=== PATIENT | female | born 1940 | race Caucasian/White ===

== ENCOUNTER 2017-08-31 06:38 | Inpatient (IN) | payer MEDICARE, OTHER ==
[2017-08-31 07:14] LABS: Oxyhemoglobin 89.7 % (94.0-97.0); Sodium 139 mmol/L (135-148)
[2017-08-31 07:17] LABS: Mode 2L/M NASAL CANNULA; Modified Allen's Test POSITIVE
[2017-08-31 07:23] LABS: #Basophils 0.1 thou/uL (0.0-0.2); #Eosinphils 0.6 thou/uL (0.0-0.7); #Monocytes 0.9 thou/uL (0.11-0.59); #Neutrophils 7.5 thou/uL (1.40-6.50); %Basophils 0.5 % (0.0-1.0); %Eosinophils 5.6 % (0.0-10.0); %Lymphocytes 17.9 % (21.0-51.0); %Monocytes 8.4 % (0.0-10.0); Hematocrit 39.8 % (36.0-47.0); Red Blood Cell (RBC) Count 4.29 mill/uL (4.20-5.40); White Blood Cell (WBC) Count 11.1 thou/uL (4.8-10.8)
[2017-08-31 07:30] LABS: Prothrombin Time 13.8 SEC (12.0-14.7)
[2017-08-31 07:31] LABS: PTT 43.5 SEC (22.9-36.1)
[2017-08-31 07:42] LABS: Lactic Acid - Sepsis 1.9 mmol/L (0.5-2.2)
[2017-08-31 07:46] LABS: ALT (SGPT) 14 U/L (8-55); AST (SGOT) 14 U/L (5-34); Alkaline Phosphatase 159 U/L (40-150); Anion Gap 15 mmol/L (10-20); BUN (Urea Nitrogen) 12 mg/dL (9.8-20.1); Bilirubin, Total 0.3 mg/dL (0.2-1.2); CK (CPK) 21 U/L (29-168); Calc. Creatinine Clearance 0 mL/min (70-130); Calcium 9.4 mg/dL (7.8-10.44); Carbon Dioxide 24 mmol/L (23-31); Chloride 102 mmol/L (98-107); Estimated GFR-MDRD 66; Globulin 3.6 g/dL (2.4-3.5); Lipase 8 U/L (8-78); Protein, Total 7.2 g/dL (6.0-8.3)
[2017-08-31 07:49] LABS: Bilirubin Negative (Negative); Blood, Urine Negative (Negative); Glucose, Urine (Dipstick) Negative (Negative); Ketone, Urine Negative (Negative); Nitrite Negative (Negative); Protein, Urine (Dipstick) Trace mg/dL (Neg-Trace); Urobilinogen 0.2 mg/dL (0.2-1.0)
[2017-08-31 07:49] LABS: Troponin I Less than 0.010 ng/mL (< 0.028)
[2017-08-31] MEDS ORDERED: HYDROcodone/Acetaminophen 10/325 mg Tablet ONE (08:11)
--- NOTE | 2017-08-31 08:18 | RAD ---
PORTABLE CHEST ONE VIEW: History: 77-year-old female with cough for three days. Fever. Chills. Comparison: 05-31-17 FINDINGS: Rotation to the left. Poor inspiration. Minimal cardiomegaly. No confluent pneumonia, overt edema or pleural effusion . IMPRESSION: Poor inspiratory effort with minimal cardiomegaly. Stable increased markings in the bases, evidence for some chronic change. No confluent pneumonia or other acute process. POS: GARY
[2017-08-31] MEDS ORDERED: Loratadine 10 MG TAB PO PRN (09:56)
[2017-08-31] MEDS ORDERED: Ondansetron HCl/PF 4 MG/2 ML Vial IVP PRN (09:56)
[2017-08-31] MEDS ORDERED: Loperamide HCl 2 MG CAP PO PRN (09:56)
[2017-08-31] MEDS ORDERED: Eucerin (Mineral Oil/Petrolatum,White) 30 gm Jar TOP PRN (09:56)
[2017-08-31] MEDS ORDERED: HYDROcodone/Acetaminophen 5/325 mg Tablet PO PRN (09:56)
[2017-08-31] MEDS ORDERED: Diabetic Tussin 200 MG/10 ML UDCUP PO PRN (09:56)
[2017-08-31] MEDS ORDERED: Sodium Chloride 0.65% Nasal 44 ML BOT EA NARE PRN (09:56)
[2017-08-31] MEDS ORDERED: Milk Of Magnesia 30 ML UDCUP PO PRN (09:56)
[2017-08-31] MEDS ORDERED: Mag-Al 1200 mg/1200 mg/30 ML UDCUP PO PRN (09:56)
[2017-08-31] MEDS ORDERED: Chloraseptic Spray 180 ml Bottle PO PRN (09:56)
[2017-08-31] MEDS ORDERED: Benzonatate 100 MG CAP PO PRN (09:56)
[2017-08-31] MEDS ORDERED: Artificial Tears 18 DROP/0.9 ML EA EYE PRN (09:56)
[2017-08-31] MEDS ORDERED: Ondansetron ODT 4 MG TAB PO PRN (09:56)
[2017-08-31] MEDS ORDERED: Senokot 8.6 MG TAB PO PRN (09:56)
[2017-08-31] MEDS ORDERED: Acetaminophen 325 MG TAB PO PRN (09:56)
[2017-08-31] MEDS ORDERED: hydrALAZINE 20 MG/ML VIAL SLOW IVP PRN (09:56)
[2017-08-31 10:22] VITALS: BMI 34.6
[2017-08-31] MEDS ORDERED: Sodium Chloride 0.9% 1,000 ML IV SCH (10:30)
[2017-08-31] MEDS ORDERED: HYDROcodone/Acetaminophen 10/325 mg Tablet PO PRN (10:37)
[2017-08-31] MEDS ORDERED: Phenergan/Codeine 10-6.25mg/5ml UDCUP PO PRN (10:37)
[2017-08-31] MEDS ORDERED: Potassium Chloride 10 MEQ TAB PO PRN (10:37)
[2017-08-31 10:58] LABS: Troponin I Less than 0.010 ng/mL (< 0.028)
[2017-08-31] MEDS: Sodium Chloride 0.9% 1,000 ML IV SCH ×2 (11:04→23:43)
[2017-08-31] MEDS: cefTRIAXone\\ROCEPHIN 2 GM, Admixture Fee 1 EACH in Sodium Chloride 0.9% 100 ML IVPB SCH (11:04)
--- NOTE | 2017-08-31 11:54 | HP ---
PRIMARY CARE PHYSICIAN: Dr. Agustin Villalta. REASON FOR ADMISSION: Sepsis, early pneumonia/bronchitis. HISTORY OF PRESENT ILLNESS: A 77-year-old female who lives at home. She is mostly bed-bound status. She only able to ambulate few steps with help, most of the time she spends time in a recliner. Two weeks ago, patient was evaluated by [facility] nurse practitioner, and patient was started on Medrol Dosepak and antibiotic therapy for her plain cough. The patient's daughter reports that she has cough for a long period of time, but at that time cough has gotten worse and patient was given a course of antibiotic as well as a Medrol Dosepak that helped her symptoms, but when they finished antibiotic and steroid course, patient's symptoms started again. The patient was having increasing coughing. She was becoming more and more weak. She does have postnasal drip. She was feeling sore throat. She denies any upper respiratory infection. She denies any flu-like illness. She denies any hemoptysis, but she reports cough productive of yellowish-white sputum. Last night, patient was having low-grade fever and again patient this morning fever was increased to 100.7 and Paramedics was called and Paramedics checked her temperature, it was 101. Patient denies any pleuritic chest pain. She denies any shortness of breath. When she arrived to ER, her oxygen saturation was 88% on room air. With oxygen, her saturation improved to normal. She was tachycardic. She was meeting SIRS/sepsis criteria. Patient had blood culture done and patient was given empiric antibiotic therapy, subsequently we decided to keep this patient in the hospital for further evaluation and treatment. Patient denies any UTI symptoms. She denies any constipation or diarrhea. She had last bowel movement yesterday. She denies any hematochezia or melena. She denies any abdominal pain, nausea, vomiting, or diarrhea. REVIEW OF SYSTEMS: Please see my HPI for pertinent positives and negatives. All other review of systems reviewed and negative except as mentioned in the HPI. Constitutional: Weight loss or gain, ability to conduct usual activities. Skin: Rash, itching. Eyes: Double vision, pain. ENT/Mouth: Nose bleeding, neck stiffness, pain, tenderness. Cardiovascular: Palpitations, dyspnea on exertion, orthopnea. Respiratory: Shortness of breath, wheezing, cough, hemoptysis, fever, or night sweats. Gastrointestinal: Poor appetite, abdominal pain, heartburn, nausea, vomiting, constipation, or diarrhea. Genitourinary: Urgency, frequency, dysuria, nocturia. Musculoskeletal: Pain, swelling. Neurologic/Psychiatric: Anxiety, depression. Allergy/Immunologic: Skin rash, bleeding tendency. ALLERGIES: ERYTHROMYCIN, LATEX GLOVES, and SULFA DRUGS. CURRENT HOME MEDICATIONS: Xanax 0.25 mg p.o. at bedtime; albuterol nebulization q.4 hourly; ProAir HFA 2 puffs q.4 hourly p.r.n.; amlodipine 10 mg daily; vitamin C 500 mg p.o. daily; Lipitor 10 mg p.o. daily; QVAR one inhalation b.i.d.; vitamin D3 of 200 units p.o. daily; Nexium 40 mg p.o. daily; Prozac 20 mg p.o. daily; Lasix 20 mg p.o. daily p.r.n.; gabapentin 800 mg p.o. as directed, she takes 2 tablets in morning, 1 tablet in afternoon, and 2 tablets at bedtime; [place] one tablet q.4 hourly p.r.n.; Synthroid 125 mcg p.o. daily; Imodium as directed; Mobic 15 mg p.o. daily; multivitamin 1 tablet p.o. daily; potassium chloride 10 mEq p.o. daily p.r.n.; Phenergan with codeine p.r.n.; Zantac 75 mg p.o. at bedtime; Detrol-LA 4 mg p.o. daily; valsartan 320 mg p.o. daily. PAST MEDICAL HISTORY: Chronic obstructive pulmonary disease/asthma, dyslipidemia, hypertension, gastroesophageal reflux disease, chronic physical deconditioning, chronic back pain, hypothyroidism. PAST SURGICAL HISTORY: Back surgery, appendicectomy, cholecystectomy, hysterectomy. FAMILY HISTORY: No strong family history of CAD, CVA or cancer. PAST PSYCHIATRIC HISTORY: Anxiety and depression. SOCIAL HISTORY: Patient lives at home. She is . No history of tobacco , alcohol, or illicit drug abuse. Patient has a sedentary lifestyle. EMERGENCY ROOM COURSE: Patient was given IV fluid 1 liter, Levaquin 750 mg. Patient was given another liter of fluid and DuoNeb therapy. PHYSICAL EXAMINATION: VITAL SIGNS: On arrival blood pressure 143/86, pulse 111, respiratory rate 28, temperature 99.2, saturation 88% on room air, weight 99.7 kilograms. GENERAL: Patient is currently alert, awake, appears weak. No obvious acute distress. HEAD: Normocephalic, atraumatic. EYES: Pupils round, reactive to light. Extraocular muscles intact. ENT: Oropharynx within normal limits. Moist mucous membranes. No oral lesions. No pharyngeal erythema and no exudate. NECK: Supple, no JVD, no thyromegaly, no carotid bruit. No meningeal signs of irritation. LUNGS: Bilateral few and expiratory wheezing heard. Air entry reduced at bases. No rales. No accessory muscles of respiration in use. CARDIAC: S1, S2 regular, tachycardia. No murmur, no gallop, no rub. ABDOMEN: Soft, bowel sounds present, nontender, nondistended. No organomegaly , no mass, no suprapubic tenderness. BACK: Unremarkable. No CVA tenderness. EXTREMITIES: Upper extremity, passive movement of all joints are normal. Lower extremity, no edema. Good peripheral pulsation. No calf tenderness. SKIN: No skin rash. HEMATOLOGICAL SYSTEM: No lymphadenopathy. PSYCHIATRIC: Normal affect. NEUROLOGIC: Nonfocal examination. SIGNIFICANT LABORATORY DATA: EKG showing sinus tachycardia, premature atrial complexes, left axis deviation. Chest x-ray based on my review poor inspiratory effort, minimal cardiomegaly, possible infiltration at lung base. CBC: WBC 11.1, hemoglobin 13.1, platelet 244. INR 1.1. ABG: pH 7.42, pCO2 of 36.2, pO2 of 58.5, bicarbonate 23.1, saturation 91.6 on 2 liters. BMP: Sodium 136, potassium 4.5, chloride 102, carbon dioxide 24, BUN 12, creatinine 0.84, glucose 120, calcium 9.4. Lactic acid 1.9. LFT: AST 14, ALT 14, alkaline phosphatase 159, albumin 3.6. CK 21, CK-MB 0.5, troponin I less than 0.010. BNP 27.8, lipase 8. Urinalysis normal. Influenza A and B negative. ASSESSMENT AND PLAN: 1. Sepsis with systemic inflammatory response syndrome criteria. Source of infection is most likely lung. Patient does have symptoms suggestive of acute bronchitis versus early pneumonia. Patient already received empiric antibiotic therapy in the emergency room. I will continue Rocephin and Levaquin while in hospital. The patient will be given IV fluid with normal saline at 75 mL per hour. 2. Acute bronchitis/early pneumonia. Patient will be given Rocephin and Levaquin IV as mentioned above. Continue Solu-Medrol 20 mg IV q.8 hourly, Mucinex 600 mg twice daily. We will continue with the DuoNeb q.6 hourly and Dulera 2 puffs inhalation b.i.d. 3. Chronic obstructive pulmonary disease/asthma, as mentioned above. We will continue Solu-Medrol 20 mg IV q.8 hourly along with DuoNeb q.6 hourly and Dulera 2 puffs inhalation b.i.d., and Mucinex 600 mg twice daily and symptomatic treatment for cough. 4. Hypertension. If blood pressure allows, then we will continue amlodipine at 10 mg p.o. daily and valsartan 320 mg p.o. daily. At this point, blood pressure runs low and that is why we will hold on both antihypertensive medications, but we will consider adding later on today. 5. Gastroesophageal reflux disease. We will continue Protonix 40 mg p.o. daily. 6. Anxiety and depression. We will continue Xanax 0.25 mg p.o. at bedtime, Prozac 20 mg p.o. daily. 7. Chronic low back pain. We will consider giving her gabapentin as per home dosage, but at this point patient is taking high dose of gabapentin, so we will monitor with 300 mg t.i.d. 8. Hypothyroidism. We will continue Synthroid 125 mcg p.o. daily. 9. Chronic physical deconditioning. Patient does not have any ambulatory status. Patient has chronic physical deconditioning and that is why we will consult PT, OT evaluation while in hospital. 10. Obesity with BMI 34. Weight loss education given. Healthy lifestyle measures discussed with the patient. 11. Deep venous thrombosis prophylaxis. Patient's family member does not want Lovenox to be given, because they had bad experience with Lovenox in the past, because of her intraabdominal wall hematoma required blood transfusion and they do not want Lovenox to prevent deep vein thrombosis, but they are okay with mechanical SCD boots. Risks discussed with the patient's family member. 12. Gastrointestinal prophylaxis, Protonix 40 mg p.o. daily and Pepcid 20 mg p.o. daily. CODE STATUS: The patient is FULL CODE. Patient's daughter is surrogate decision maker. Disposition plan based on clinical course. We are expecting patient's stay in hospital more than 2 midnights. Plan of care discussed with the patient and daughter in detail. MTDD
[2017-08-31] MEDS: HYDROcodone/Acetaminophen 10/325 mg Tablet PO PRN ×3 (12:58→22:11)
[2017-08-31] MEDS: Mometasone/Formoterol 120 PUFF INHALER INH SCH (18:35)
[2017-08-31] MEDS: ALPRAZolam 0.25 MG TAB PO SCH (21:59)
[2017-08-31] MEDS: guaiFENesin ER 600 MG TAB PO SCH (21:59)
[2017-08-31] MEDS: TROSPIUM 20 MG TABLET PO SCH (22:00)
[2017-08-31] MEDS: Famotidine 20 MG TAB PO SCH (22:00)
[2017-08-31] MEDS: Zolpidem Tartrate 5 MG TAB PO PRN (23:40)
[2017-09-01 05:34] LABS: #Lymphocytes 1.2 thou/uL (1.20-3.40); #Monocytes 0.3 thou/uL (0.11-0.59); #Neutrophils 8.4 thou/uL (1.40-6.50); %Basophils 0.2 % (0.0-1.0); %Eosinophils 0.4 % (0.0-10.0); %Lymphocytes 11.6 % (21.0-51.0); %Monocytes 2.8 % (0.0-10.0); Hematocrit 35.6 % (36.0-47.0); Mean Platelet Volume 7.2 fL (7.4-10.4); Red Blood Cell (RBC) Count 3.81 mill/uL (4.20-5.40); White Blood Cell (WBC) Count 9.9 thou/uL (4.8-10.8)
[2017-09-01 05:37] LABS: Anion Gap 13 mmol/L (10-20); BUN (Urea Nitrogen) 10 mg/dL (9.8-20.1); Calc. Creatinine Clearance 92 mL/min (70-130); Calcium 8.5 mg/dL (7.8-10.44); Carbon Dioxide 24 mmol/L (23-31); Chloride 106 mmol/L (98-107); Estimated GFR-MDRD 74
[2017-09-01] MEDS: Levothyroxine Sodium 125 MCG TAB PO SCH (05:40)
[2017-09-01] MEDS: HYDROcodone/Acetaminophen 10/325 mg Tablet PO PRN ×3 (05:41→16:23)
[2017-09-01] MEDS: Mometasone/Formoterol 120 PUFF INHALER INH SCH ×2 (06:27→22:39)
--- NOTE | 2017-09-01 06:48 | PDOC.PN ---
- Subjective Encounter Start Date: 09/01/17 Encounter Start Time: 06:46 -: old records requested/rev Patient seen and examined. No new complaints. No overnight events, no fever - Objective Resuscitation Status: Resuscitation Status FULL:Full Resuscitation MAR Reviewed: Yes Vital Signs & Weight: Vital Signs (12 hours) Temp Pulse Resp BP Pulse Ox 09/01/17 06:27 107 H 18 96 09/01/17 06:25 107 H 18 96 09/01/17 04:00 98.0 F 101 H 18 148/84 H 99 09/01/17 03:02 94 L 09/01/17 00:17 94 12 9 L 08/31/17 23:58 98.0 F 94 18 135/83 95 08/31/17 20:00 98 F 98 18 92 L 08/31/17 19:32 98.0 F 98 18 100/63 92 L I&O: 08/30/17 08/31/17 09/01/17 06:59 06:59 06:59 Intake Total 1350 Balance 1350 Result Diagrams: 09/01/17 04:13 09/01/17 04:13 Phys Exam - Physical Examination Constitutional: NAD HEENT: PERRLA, moist MMs, sclera anicteric Neck: no JVD, supple Respiratory: no wheezing, no rales, no rhonchi Cardiovascular: RRR, no significant murmur, no rub Gastrointestinal: soft, non-tender, no distention, positive bowel sounds Musculoskeletal: no edema, pulses present Neurological: non-focal, normal sensation Lymphatic: no nodes Psychiatric: normal affect Skin: no rash, normal turgor Dx/Plan (1) Sepsis Code(s): A41.9 - SEPSIS, UNSPECIFIED ORGANISM Status: Acute Qualifiers: Sepsis type: sepsis due to unspecified organism Qualified Code(s): A41.9 - Sepsis, unspecified organism (2) Acute bronchitis Code(s): J20.9 - ACUTE BRONCHITIS, UNSPECIFIED Status: Acute Qualifiers: Bronchitis organism: unspecified organism Qualified Code(s): J20.9 - Acute bronchitis, unspecified (3) COPD (chronic obstructive pulmonary disease) Status: Chronic (4) Hypertension Code(s): I10 - ESSENTIAL (PRIMARY) HYPERTENSION Status: Chronic (5) GERD (gastroesophageal reflux disease) Code(s): K21.9 - GASTRO-ESOPHAGEAL REFLUX DISEASE WITHOUT ESOPHAGITIS Status: Chronic Qualifiers: Esophagitis presence: without esophagitis Qualified Code(s): K21.9 - Gastro -esophageal reflux disease without esophagitis (6) Anxiety and depression Code(s): F41.8 - OTHER SPECIFIED ANXIETY DISORDERS Status: Chronic (7) Chronic low back pain Code(s): M54.5 - LOW BACK PAIN; G89.29 - OTHER CHRONIC PAIN Status: Chronic (8) Hypothyroidism Code(s): E03.9 - HYPOTHYROIDISM, UNSPECIFIED Status: Chronic (9) Obesity (BMI 30.0-34.9) Code(s): E66.9 - OBESITY, UNSPECIFIED Status: Chronic (10) Physical deconditioning Code(s): R53.81 - OTHER MALAISE Status: Chronic - Plan cont current plan of care, continue antibiotics, PT/OT, respiratory therapy * continue rocephin and levaquin * continue iv solumedrol * continue duoneb and dulera * pt is slowly improving * medication reviewed as below * symptomatic treatment. Review of Systems - Review of Systems ENT: negative: Ear Pain, Ear Discharge, Nose Pain, Nose Discharge, Nose Congestion, Mouth Pain, Mouth Swelling, Throat Pain, Throat Swelling, Other Respiratory: Cough. negative: Dry, Shortness of Breath, Hemoptysis, SOB with Excertion, Pleuritic Pain, Sputum, Wheezing Cardiovascular: negative: Chest Pain, Palpitations, Orthopnea, Paroxysmal Noc. Dyspnea, Edema, Light Headedness, Other Gastrointestinal: negative: Nausea, Vomiting, Abdominal Pain, Diarrhea, Constipation, Melena, Hematochezia, Other Genitourinary: negative: Dysuria, Frequency, Incontinence, Hematuria, Retention , Other Musculoskeletal: negative: Neck Pain, Shoulder Pain, Arm Pain, Back Pain, Hand Pain, Leg Pain, Foot Pain, Other Skin: negative: Rash, Lesions, John, Bruising, Other - Medications/Allergies Allergies/Adverse Reactions: Allergies Allergy/AdvReac Type Severity Reaction Status Date / Time erythromycin base Allergy Verified 08/31/17 10:05 [From Erythrocin] Latex, Natural Rubber Allergy Verified 08/31/17 10:05 Sulfa (Sulfonamide Allergy Verified 08/31/17 10:05 Antibiotics) Medications: Current Medications Acetaminophen (Tylenol) 650 mg PO Q4H PRN PRN Reason: Headache/Fever or Pain Hydrocodone Bitart/Acetaminophen ([place] 10/325) 1 tab PO Q4H PRN PRN Reason: Severe Pain (7-10) Last Admin: 09/01/17 05:41 Dose: 1 tab Hydrocodone Bitart/Acetaminophen ([place] 5/325) 1 tab PO Q4H PRN PRN Reason: Moderate Pain (4-6) Al Hydroxide/Mg Hydroxide (Maalox) 30 ml PO Q6H PRN PRN Reason: Heartburn or Indigestion Albuterol/Ipratropium (Duoneb) 3 ml NEB [id number] [facility] Last Admin: 09/01/17 06:25 Dose: 3 ml Alprazolam (Xanax) 0.25 mg PO HS [facility] Last Admin: 08/31/17 21:59 Dose: 0.25 mg Artificial Tears (Tears Naturale) 0 drop EA EYE PRN PRN PRN Reason: Dry Eyes Ascorbic Acid (Vitamin C) 500 mg PO DAILY [facility] Atorvastatin Calcium (Lipitor) 10 mg PO DAILY [facility] Benzonatate (Tessalon) 100 mg PO Q4H PRN PRN Reason: Cough Famotidine (Pepcid) 20 mg PO BID [facility] Last Admin: 08/31/17 22:00 Dose: 20 mg Fluoxetine HCl (Prozac) 20 mg PO DAILY [facility] Guaifenesin (Robitussin Sf) 200 mg PO Q4H PRN PRN Reason: Cough Guaifenesin (Mucinex) 600 mg PO Q12HR [facility] Last Admin: 08/31/17 21:59 Dose: 600 mg Hydralazine HCl (Apresoline) 10 mg SLOW IVP Q4H PRN PRN Reason: Systolic BP > 180 Levofloxacin 500 mg/ Device 100 mls @ 100 mls/hr IVPB Q24HR [facility] Ceftriaxone Sodium 2 gm/Miscellaneous Medication 1 each/ Sodium Chloride 100 mls @ 200 mls/hr IVPB 1100 [facility] Last Admin: 08/31/17 11:04 Dose: 100 mls Sodium Chloride (Normal Saline 0.9%) 1,000 mls @ 75 mls/hr IV .[id number] [facility] Last Admin: 08/31/17 23:43 Dose: 1,000 mls Iron/Minerals/Multivitamins (Theragran M) 1 tab PO DAILY [facility] Levothyroxine Sodium (Synthroid) 125 mcg PO 0600 [facility] Last Admin: 09/01/17 05:40 Dose: 125 mcg Loperamide HCl (Imodium) 2 mg PO PRN PRN PRN Reason: Diarrhea/Loose Stools Loratadine (Claritin) 10 mg PO DAILYPRN PRN PRN Reason: Sinus Symptoms Magnesium Hydroxide (Milk Of Magnesium) 30 ml PO DAILYPRN PRN PRN Reason: Constipation Meloxicam (Mobic) 15 mg PO DAILY [facility] Methylprednisolone Sodium Succinate (Solu-Medrol) 20 mg IVP Q8HR [facility] Last Admin: 09/01/17 05:41 Dose: 20 mg Mineral Oil/White Petrolatum (Eucerin Cream) 0 gm TOP BIDPRN PRN PRN Reason: Dry Skin Mometasone Furoate/Formoterol Fumar (Dulera 200 Mcg/5 Mcg Inhaler) 2 puff INH BID-RT [facility] Last Admin: 09/01/17 06:27 Dose: 2 puff Ondansetron HCl (Zofran Odt) 4 mg PO Q6H PRN PRN Reason: Nausea/Vomiting Ondansetron HCl (Zofran) 4 mg IVP Q6H PRN PRN Reason: Nausea/Vomiting Pantoprazole Sodium (Protonix) 40 mg PO DAILY [facility] Phenol (Chloraseptic [place] 180 Ml Bot) 0 ml PO PRN PRN PRN Reason: Sore Throat Promethazine HCl/Codeine (Phenergan/Codeine Syrup) 5 ml PO QID PRN PRN Reason: Cough Senna (Senokot) 2 tab PO HSPRN PRN PRN Reason: Constipation Sodium Chloride ([place] Nasal [place] 0.65%) 0 ml EA NARE QIDPRN PRN PRN Reason: Nasal Congestion Sodium Chloride (Flush - Normal Saline) 10 ml IVF Q12HR [facility] Last Admin: 08/31/17 22:00 Dose: 10 ml Sodium Chloride (Flush - Normal Saline) 10 ml IVF PRN PRN PRN Reason: Saline Flush Trospium (Trospium Chloride) 20 mg PO BID [facility] Last Admin: 08/31/17 22:00 Dose: 20 mg Zolpidem Tartrate (Ambien) 5 mg PO HSPRN PRN PRN Reason: Insomnia Last Admin: 08/31/17 23:40 Dose: 5 mg
[2017-09-01] MEDS: Ascorbic Acid 500 mg Chewable Tablet PO SCH (08:00)
[2017-09-01] MEDS: Atorvastatin Calcium 10 MG TAB PO SCH (08:01)
[2017-09-01] MEDS: Famotidine 20 MG TAB PO SCH ×2 (08:01→22:23)
[2017-09-01] MEDS: guaiFENesin ER 600 MG TAB PO SCH ×2 (08:01→22:23)
[2017-09-01] MEDS: FLUoxetine HCl 20 MG CAP PO SCH (08:01)
[2017-09-01] MEDS: TROSPIUM 20 MG TABLET PO SCH ×2 (08:01→22:23)
[2017-09-01] MEDS: Multivitamin W/ Minerals 1 TAB PO SCH (08:01)
[2017-09-01] MEDS ORDERED: Enoxaparin Sodium 40 MG/0.4 ML SYRINGE SC SCH (09:00)
[2017-09-01] MEDS: Meloxicam 15 MG TAB PO SCH (09:55)
[2017-09-01] MEDS: cefTRIAXone\\ROCEPHIN 2 GM, Admixture Fee 1 EACH in Sodium Chloride 0.9% 100 ML IVPB SCH (11:52)
[2017-09-01] MEDS: Sodium Chloride 0.9% 1,000 ML IV SCH ×2 (14:23→15:07)
[2017-09-01] MEDS: HYDROcodone/Acetaminophen 5/325 mg Tablet PO PRN ×2 (18:51→23:19)
[2017-09-01] MEDS: ALPRAZolam 0.25 MG TAB PO SCH (22:23)
[2017-09-01] MEDS: Zolpidem Tartrate 5 MG TAB PO PRN (23:19)
[2017-09-02] MEDS: HYDROcodone/Acetaminophen 10/325 mg Tablet PO PRN (05:03)
[2017-09-02] MEDS: Levothyroxine Sodium 125 MCG TAB PO SCH (05:03)
[2017-09-02] MEDS: Sodium Chloride 0.9% 1,000 ML IV SCH ×2 (05:04→17:22)
[2017-09-02] MEDS: Mometasone/Formoterol 120 PUFF INHALER INH SCH ×2 (06:26→18:37)
[2017-09-02] MEDS: FLUoxetine HCl 20 MG CAP PO SCH (08:38)
[2017-09-02] MEDS: TROSPIUM 20 MG TABLET PO SCH ×2 (08:38→21:06)
[2017-09-02] MEDS: guaiFENesin ER 600 MG TAB PO SCH ×2 (08:38→21:07)
[2017-09-02] MEDS: Famotidine 20 MG TAB PO SCH ×2 (08:38→21:05)
[2017-09-02] MEDS: Atorvastatin Calcium 10 MG TAB PO SCH (08:38)
[2017-09-02] MEDS: Ascorbic Acid 500 mg Chewable Tablet PO SCH (08:38)
[2017-09-02] MEDS: Multivitamin W/ Minerals 1 TAB PO SCH (08:38)
[2017-09-02] MEDS: Meloxicam 15 MG TAB PO SCH (08:39)
--- NOTE | 2017-09-02 09:35 | PDOC.PN ---
- Subjective Encounter Start Date: 09/02/17 Encounter Start Time: 09:34 Ms. Crowder says she is doing better today, still a bit tired. She is seen today in follow-up of pneumonia. She says the cough is better. - Objective Resuscitation Status: Resuscitation Status FULL:Full Resuscitation MAR Reviewed: Yes Vital Signs & Weight: Vital Signs (12 hours) Pulse Resp Pulse Ox 09/02/17 06:24 87 16 94 L 09/02/17 00:50 82 16 94 L I&O: 09/01/17 09/02/17 09/03/17 06:59 06:59 06:59 Intake Total 1350 1800 Balance 1350 1800 Result Diagrams: 09/01/17 04:13 09/01/17 04:13 Phys Exam - Physical Examination HEENT: PERRLA Respiratory: no wheezing + rhonchi Cardiovascular: RRR, no significant murmur Gastrointestinal: soft, non-tender, positive bowel sounds Musculoskeletal: edema present + trace pedal edema Dx/Plan (1) Acute bronchitis Code(s): J20.9 - ACUTE BRONCHITIS, UNSPECIFIED Status: Acute Qualifiers: Bronchitis organism: unspecified organism Qualified Code(s): J20.9 - Acute bronchitis, unspecified (2) COPD (chronic obstructive pulmonary disease) Status: Chronic Qualifiers: COPD type: COPD with acute exacerbation Qualified Code(s): J44.1 - Chronic obstructive pulmonary disease with (acute) exacerbation (3) Chronic low back pain Code(s): M54.5 - LOW BACK PAIN; G89.29 - OTHER CHRONIC PAIN Status: Chronic (4) GERD (gastroesophageal reflux disease) Code(s): K21.9 - GASTRO-ESOPHAGEAL REFLUX DISEASE WITHOUT ESOPHAGITIS Status: Chronic Qualifiers: Esophagitis presence: without esophagitis Qualified Code(s): K21.9 - Gastro -esophageal reflux disease without esophagitis (5) Hypertension Code(s): I10 - ESSENTIAL (PRIMARY) HYPERTENSION Status: Chronic - Plan * Acute Bronchitis with sepsis syndrome- She is clinically improving * Will continue Rocephin and Levaquin and Solumedrol * Generalized deconditioning- continue PT/OT- (patient was not ambulatory at home) . * HTN- blood pressure is stable * GERD- stable * Possible home soon
[2017-09-02] MEDS: cefTRIAXone\\ROCEPHIN 2 GM, Admixture Fee 1 EACH in Sodium Chloride 0.9% 100 ML IVPB SCH (11:25)
[2017-09-02] MEDS: HYDROcodone/Acetaminophen 5/325 mg Tablet PO PRN ×2 (11:52→18:40)
--- NOTE | 2017-09-02 14:15 | PQF ---
CLINICAL DOCUMENTATION IMPROVEMENT CLARIFICATION FORM: ICD-10 Updated PLEASE DO AN ADDENDUM TO THE PROGRESS NOTE WITH ANY DOCUMENTATION UPDATES OR ADDITIONS AND CARRY THROUGH TO DC SUMMARY. THANK YOU. DATE: 09/02/17 ATTN: Dr. Gaxiola Please exercise your independent, professional judgment in responding to the clarification form. Clinical indicators are provided on the bottom of this form for your review Please check appropriate box(s): [ ] Acute Respiratory Failure: [ ] with Hypoxia [ ] with Hypercapnia [ X ] Acute On Chronic Respiratory Failure: [ X] with Hypoxia [ ] with Hypercapnia [ ] Acute Respiratory Failure due to: (etiology) [ ] Chronic Respiratory Failure only [ ] with Hypoxia [ ] with Hypercapnia [ ] Other diagnosis [ ] Unable to determine For continuity of documentation, please document condition throughout progress notes and discharge summary. Thank You. CLINICAL INDICATORS - SIGNS / SYMPTOMS / LABS H&P: WHEN SHE ARRIVED TO ER, HER O2 SATURATION WAS 88% ON RA. W/ OXYGEN HER SATURATION IMPROVED TO NORMAL. CHEST XRY: POSSIBLE INFILTRATION AT LUNG BASE ABG: PO2 58.5 RESP: TX: 09/01 O2 SAT 93 NC 2L RISKS: H&P: SEPSIS. ACUTE BRONCHITIS/ EARLY PNEUMONIA. COPD/ASTHMA TREATMENT: CPOE 08/31: RESP: O2 TO KEEP SATS 92% PRN CPOE 08/31: IV ROCEPHIN CPOE 08/31: DUONEB Q6 HR CPOE 08/31: SOLU-MEDROL 20 MG IV Q8 HR Thank you, Kalpana (This form is maintained as a part of the permanent medical record) 2015 [employer]. All Rights Reserved Kalpana Blum RN, BSN [email or web address] Office: [phone] [facility]
[2017-09-02] MEDS: ALPRAZolam 0.25 MG TAB PO SCH (21:06)
[2017-09-03] MEDS: Mometasone/Formoterol 120 PUFF INHALER INH SCH (06:17)
[2017-09-03] MEDS: Levothyroxine Sodium 125 MCG TAB PO SCH (06:34)
[2017-09-03] MEDS: Multivitamin W/ Minerals 1 TAB PO SCH (08:27)
[2017-09-03] MEDS: Meloxicam 15 MG TAB PO SCH (08:27)
[2017-09-03] MEDS: guaiFENesin ER 600 MG TAB PO SCH (08:27)
[2017-09-03] MEDS: TROSPIUM 20 MG TABLET PO SCH (08:27)
[2017-09-03] MEDS: Ascorbic Acid 500 mg Chewable Tablet PO SCH (08:27)
[2017-09-03] MEDS: Atorvastatin Calcium 10 MG TAB PO SCH (08:28)
[2017-09-03] MEDS: FLUoxetine HCl 20 MG CAP PO SCH (08:28)
[2017-09-03] MEDS: Famotidine 20 MG TAB PO SCH (08:28)
[2017-09-03] MEDS: HYDROcodone/Acetaminophen 5/325 mg Tablet PO PRN (11:32)
[2017-09-03] MEDS: cefTRIAXone\\ROCEPHIN 2 GM, Admixture Fee 1 EACH in Sodium Chloride 0.9% 100 ML IVPB SCH (11:33)
[2017-09-03 13:03] VITALS: BP 177/110; TEMP 97.7
--- NOTE | 2017-09-03 13:45 | PDOC.PN ---
- Subjective Encounter Start Date: 09/03/17 Encounter Start Time: 13:42 Ms. Crowder was seen today in follow-up of acute bronchitis. She is feeling much better, she denies dyspnea, or chest pain. - Objective Resuscitation Status: Resuscitation Status FULL:Full Resuscitation MAR Reviewed: Yes Vital Signs & Weight: Vital Signs (12 hours) Temp Pulse Resp BP Pulse Ox 09/03/17 13:02 77 16 97 09/03/17 13:00 97.7 F 70 18 177/110 H 96 09/03/17 08:00 98.1 F 71 20 93 L 09/03/17 07:49 98.1 F 71 20 144/78 H 93 L 09/03/17 06:18 96 09/03/17 06:17 76 16 95 09/03/17 06:16 76 16 95 09/03/17 04:54 97.6 F 83 18 161/88 H 96 I&O: 09/02/17 09/03/17 09/04/17 06:59 06:59 06:59 Intake Total 1800 1790 180 Balance 1800 1790 180 Result Diagrams: 09/01/17 04:13 09/01/17 04:13 Phys Exam - Physical Examination HEENT: PERRLA Respiratory: no wheezing, no rales, no rhonchi, clear to auscultation bilateral Cardiovascular: RRR, no significant murmur, no rub Gastrointestinal: soft, non-tender, positive bowel sounds Musculoskeletal: no edema Dx/Plan (1) Acute bronchitis Code(s): J20.9 - ACUTE BRONCHITIS, UNSPECIFIED Status: Acute Qualifiers: Bronchitis organism: unspecified organism Qualified Code(s): J20.9 - Acute bronchitis, unspecified (2) COPD (chronic obstructive pulmonary disease) Status: Chronic Qualifiers: COPD type: COPD with acute exacerbation Qualified Code(s): J44.1 - Chronic obstructive pulmonary disease with (acute) exacerbation (3) Chronic low back pain Code(s): M54.5 - LOW BACK PAIN; G89.29 - OTHER CHRONIC PAIN Status: Chronic (4) GERD (gastroesophageal reflux disease) Code(s): K21.9 - GASTRO-ESOPHAGEAL REFLUX DISEASE WITHOUT ESOPHAGITIS Status: Chronic Qualifiers: Esophagitis presence: without esophagitis Qualified Code(s): K21.9 - Gastro -esophageal reflux disease without esophagitis (5) Hypertension Code(s): I10 - ESSENTIAL (PRIMARY) HYPERTENSION Status: Chronic - Plan * Acute Bronchitis- improved * Will check her oxygen level off of supplemental oxygen * HTN- blood pressure was elevated- but all blood pressure medications had not been started ( due to dehydration) - these can be re-started at discharge.
--- NOTE | 2017-09-03 18:30 | DIS ---
DATE OF ADMISSION: 08/31/2017 DATE OF DISCHARGE: 09/03/2017 PRIMARY CARE PHYSICIAN: Dr. Agustin Villalta. DISCHARGE DISPOSITION: Home. PRIMARY DISCHARGE DIAGNOSES: 1. Acute bronchitis. 2. Sepsis syndrome secondary to #1. 3. Acute on chronic respiratory failure secondary to chronic obstructive pulmonary disease exacerbat ion. 4. Hypertension. 5. Gastroesophageal reflux disease. 6. History of hypothyroidism. 7. Obesity. DISCHARGE MEDICATIONS: Include Omnicef 300 mg 1 p.o. twice a day as well as prednisone 10 mg daily f or 5 days, valsartan 320 mg daily, Detrol-LA 4 mg daily, ranitidine 75 mg at bedtime, potassium chlor todd 10 mEq as needed, multivitamin once a day, meloxicam 15 mg daily, loperamide 2 mg as directed, Sy nthroid 125 mcg daily, [place] 10/325 p.r.n., gabapentin 800 mg as directed, Lasix 20 mg daily as neede d, fluoxetine 20 mg daily, Nexium 40 mg daily, vitamin D3 100 units daily, atorvastatin 10 mg daily, Qvar 120/8.7 one puff twice a day as needed, ascorbic acid 500 mg daily, amlodipine 10 mg daily, alpr azolam 0.25 mg at bedtime, and ProAir 2 puffs q.4 hours as needed. CODE STATUS: FULL CODE. ALLERGIES: ERYTHROMYCIN BASE, LATEX, RUBBER, and SULFA. HOSPITAL COURSE: Ms. Crowder is a pleasant 77-year-old female who was admitted due to having worsen ing cough at home. She was becoming weaker and she was having sore throat. She was found to be tach ycardic and hypoxic at the time of admission and was admitted for acute sepsis syndrome secondary to bronchitis. She was treated with IV antibiotics as well as IV steroids and improved over the course of the next few days and was subsequently able to be discharged home to follow up with her primary ca re physician in 1-2 weeks.
--- NOTE | 2017-10-11 13:52 | EKG ---
Test Reason : Blood Pressure : / mmHG Vent. Rate : 111 BPM Atrial Rate : 111 BPM P-R Int : 170 ms QRS Dur : 108 ms QT Int : 338 ms P-R-T Axes : 028 -54 089 degrees QTc Int : 459 ms Sinus tachycardia with Premature atrial complexes Possible Left atrial enlargement Left axis deviation Possible Lateral infarct , age undetermined Abnormal ECG Confirmed by PRASHANTH JENKINS, SARITA ([id number]), design editor OSITO PHAM ([id number]) on 10/11/2017 1:52:07 PM Referred By: Confirmed By:SARITA ALFORD MD
== END 2017-09-03 16:13 | disposition home or self-care (01) | DRG 871 ==
LOC: ERS 06:38 → T4-A 07:59
PROVIDERS: ADMIT Internal Medicine; ATTEND Internal Medicine
DX: A41.9 Sepsis, unspecified organism (principal); J96.21 Acute and chronic respiratory failure with hypoxia; E86.0 Dehydration; J44.0 Chronic obstructive pulmonary disease with (acute) lower respiratory infection; J44.1 Chronic obstructive pulmonary disease with (acute) exacerbation; Z74.01 Bed confinement status; Z88.2 Allergy status to sulfonamides; Z88.1 Allergy status to other antibiotic agents; Z91.040 Latex allergy status; E78.5 Hyperlipidemia, unspecified; I10 Essential (primary) hypertension; K21.9 Gastro-esophageal reflux disease without esophagitis; G89.29 Other chronic pain; M54.9 Dorsalgia, unspecified; E03.9 Hypothyroidism, unspecified; F41.9 Anxiety disorder, unspecified; F32.9 Major depressive disorder, single episode, unspecified; E66.9 Obesity, unspecified; Z68.34 Body mass index [BMI] 34.0-34.9, adult; J20.9 Acute bronchitis, unspecified
CPT/HCPCS: 36415; 51701; 71010; 80048; 80053; 81003; 82553; 82805; 83605; 83690; 83880; 84484; 85025; 85610; 85730; 87040; 93005; 94640; 96361; 96365; A4216; A4353; G8978-GP-CL; G8979-GP-CK; G8987-GO-CM; G8988-GO-CK; J0696; J1956; J2920; J7050; J7620